=== PATIENT | female | born 2000 | race African-American/Black ===

== ENCOUNTER 2025-03-10 15:59 | Emergency (ER) | payer MEDICAID, OTHER ==
[~2025-03-10] VITALS: Ht 165.1 cm; Wt 55.0 kg
[2025-03-10 16:12] VITALS: O2SAT 100
[2025-03-10] MEDS: SODIUM CHLORIDE 0.9% 1,000 ML IV ONE (16:52)
[2025-03-10] MEDS: ACETAMINOPHEN 500MG TABLET PO ONE (16:52)
[2025-03-10] MEDS: ONDANSETRON HCL 4MG/2ML INJ IV ONE (16:52)
[2025-03-10 18:03] LABS: BASOPHILS % 0.6 % (0.0-2.0); EOSINOPHILS % 0.2 % (0.0-5.0); HEMATOCRIT. 42.7 % (36.0-48.0); HEMOGLOBIN. 13.6 g/dL (12.0-16.0); LYMPHOCYTES % 14.7 % (20.0-50.0); MEAN PLATELET VOLUME 8.4 fl (7.4-10.4); MONOCYTES % 7.0 % (2.0-8.0); NEUTROPHILS % 77.5 % (40.0-76.0); PLATELET 297 x1000/uL (130-400); RED BLOOD CELL COUNT 4.82 mill/uL (4.2-5.4); RED CELL DISTRIBUTION WIDTH 14.2 % (11.6-14.6)
[2025-03-10 18:23] LABS: CREATININE 0.9 mg/dL (0.6-1.0); UREA NITROGEN BLOOD 6 mg/dL (9-23)
[2025-03-10 18:24] LABS: TROPONIN I HIGH SENSITIVITY < 4 ng/L (3.0-34)
[2025-03-10 18:25] LABS: ASPARTATE AMINOTRANSFERASE 16 IU/L (<34)
[2025-03-10 18:26] LABS: B-HCG QUANTITATIVE < 1 mIU/mL (<6); BILIRUBIN DIRECT 0.2 mg/dL (<=3.0); BILIRUBIN TOTAL 0.7 mg/dL (0.1-1.0); PROTEIN TOTAL 7.2 g/dL (6.0-8.3)
[2025-03-10] MEDS: DEXTROSE 50% WATER 50ML SYRINGE IV ONE (19:59)
[2025-03-10] MEDS: POTASSIUM CHLORIDE 20MEQ/PACKET PO ONE (20:00)
[2025-03-10] MEDS: KETOROLAC 15MG/ML VIAL IV ONE (20:01)
[2025-03-10] MEDS ORDERED: ONDA-239 PO (20:24)
[2025-03-10] MEDS: MAGNESIUM 1 G PREMIX 100 ML IV ONE (20:31)
[2025-03-10 21:34] VITALS: BP 118/78; PULSE 84; RESP 16; TEMP 37.1; O2SAT 100
[2025-03-10 22:18] LABS: CREATININE 0.9 mg/dL (0.6-1.0); UREA NITROGEN BLOOD < 5 mg/dL (9-23)
[2025-03-10 22:20] LABS: ASPARTATE AMINOTRANSFERASE 16 IU/L (<34); BILIRUBIN TOTAL 0.7 mg/dL (0.1-1.0); PROTEIN TOTAL 7.6 g/dL (6.0-8.3)
== END 2025-03-10 21:40 | disposition home or self-care (01) ==
LOC: ER 15:59 → CMPBEDREQ 03-11 07:27
DX: R07.9 Chest pain, unspecified (principal); R11.10 Vomiting, unspecified; I10 Essential (primary) hypertension; R10.20 Pelvic and perineal pain unspecified side; R06.02 Shortness of breath; E16.2 Hypoglycemia, unspecified; Z79.899 Other long term (current) drug therapy
CPT/HCPCS: 80076; 80053; 80048; 80320; 82962; 84702; 83880; 83690; 83735; 85025; 85379; 84484; 36415; 71045; 96361; 96365; 96375; 99284; J1885; J3475; J2405; J7030; Z7610; G0480